=== PATIENT | female | born 1985 | race Asian ===

== ENCOUNTER 2020-11-16 15:35 | Emergency (ER) | payer OTHER, SELFPAY ==
[2020-11-16] VITALS (19 sets, daily range): BP systolic 96–109; BP diastolic 65–78; PULSE 80–109; RESP 19–40; TEMP 38.2; O2SAT 89–96
--- NOTE | ~2020-11-16 | XR_ITS ---
EXAMINATION: XR chest 1V portable DATE: 11/16/2020 16:21 INDICATION: Cough and fever. TECHNIQUE: frontal view of the chest was obtained. COMPARISON: Chest radiograph dated 03/20/2016 FINDINGS: Subtle opacities in the bilateral mid and lower lung zones. No pleural effusion or pneumothorax. The cardiomediastinal silhouette is normal. Visualized bones and soft tissues are unremarkable. IMPRESSION: 1. Subtle opacities in the bilateral mid and lower lung zones which could be related to pneumonia, pu lmonary edema, atelectasis, superimposed glandular breast tissue or some combination thereof. Reviewed, dictated and finalized at location B. IMPRESSION: 1. Subtle opacities in the bilateral mid and lower lung zones which could be re lated to pneumonia, pulmonary edema, atelectasis, superimposed glandular breast tissue or some combination thereof.
--- NOTE | 2020-11-16 16:23 | ECG_ITS ---
Measurements Intervals [place] Rate: 102 P: 121 NH: 129 QRS: 102 QRSD: 77 T: 151 QT: 314 QTc: 410 Interpretive Statements SINUS TACHYCARDIA ARM LEADS REVERSED BASELINE ARTIFACT- I, III, AVR, AVL, AVF, V1-V3 BORDERLINE ECG Electronically Signed On 11-22-2020 20:12:53 CDT by Robby Ortega D.O.
--- NOTE | 2020-11-16 16:28 | ED.SOB ---
HPI - SOB/Dyspnea General Chief Complaint: Shortness of Breath/Dyspnea <Rona Tom PA-C - Last Filed: 11/16/20 19:26> Stated Complaint: Low O2 Sats <HARMAN Walsh Last Filed: 11/16/20 19:26> Time Seen by Provider: 11/16/20 15:56 <HARMAN Walsh Last Filed: 11/16/20 19:26> Source: patient <HARMAN Walsh Last Filed: 11/16/20 19:26> Mode of arrival: wheelchair <HARMAN Walsh Last Filed: 11/16/20 19:26> Limitations: no limitations <HARMAN Walsh Last Filed: 11/16/20 19:26> History of Present Illness HPI Narrative: This is a 34 year old , about 20 weeks , that presents to the ER for shortness of breath. Reports ongoing cold symptoms for the last 2 days. Reports fever, cough, congestion, shortness, and sore throat. Reports she was at an engagement [employer] a week ago with a coworker. Reports she was told later that this person had tested positive for coronavirus. She herself is not vaccinated. Denies chest pain. <HARMAN Walsh Last Filed: 11/16/20 19:26> Related Data Home Medications: Home Medications Medication Instructions Recorded Confirmed albuterol mcg INHALATION 11/16/20 [id number] tablet PO 11/16/20 [] <HARMAN Walsh Last Filed: 11/16/20 19:26> Allergies/Adverse Reactions: Allergies Allergy/AdvReac Type Severity Reaction Status Date / Time peanut Allergy Severe Anaphylaxis Verified 11/16/20 16:14 <HARMAN Walsh Last Filed: 11/16/20 19:26> Review of Systems Review of Systems: CONSTITUTIONAL: Reports fever, chills CARDIOVASCULAR: Denies chest pain or edema. RESPIRATORY: Reports cough and dyspnea. GASTROINTESTINAL: Denies abdominal pain, nausea, vomiting <HARMAN Walsh Last Filed: 11/16/20 19:26> All systems reviewed & are unremarkable except as noted in HPI and below <Rona Tom PA-C - Last Filed: 11/16/20 19:26> [facility] Past Medical History Medical History: Medical History (Updated 11/16/20 @ 19:26 by Rona Tom PA-C) History of asthma STD exposure <Rona Tom PA-C - Last Filed: 11/16/20 19:26> Family History Family History: Family History Other Family history of alcoholism <Rona Tom PA-C - Last Filed: 11/16/20 19:26> Social History Social History: Social History (Updated 11/16/20 @ 19:19 by Rona Tom PA-C) Smoking status: Never smoker Gender identity (if verbalized by the patient): Female <Rona Tom PA-C - Last Filed: 11/16/20 19:26> Exam Narrative: GENERAL: Well-appearing, well-nourished, and in no acute distress. HEAD: Normocephalic, atraumatic. EYES: EOMI. ENT: Nares clear, no rhinorrhea or epistaxis. Mucous membranes moist. Oropharynx without tonsillar hypertrophy exudate or other lesions. Bilateral TMs pearly arrieta non-bulging NECK: Supple. No adenopathy or masses. CHEST: Rales at the lung bases. No respiratory distress. No wheezes or rhonchi HEART: Regular rate and rhythm. No murmur heard. Normal peripheral pulses. ABDOMEN: Gravid, nontender, normal active bowel sounds. EXTREMITIES: Normal range of motion. No edema. SKIN: Warm, dry, no rash. NEURO: No focal deficits. Alert and oriented x3. PSYCH: Normal mood and affect <Rona Tom PA-C - Last Filed: 11/16/20 19:26> Course [employer] Physician Supervision Patient is 34-year-old female complaining of shortness of breath. Covid positive patient. Mild distress. Febrile. Tachycardic no murmurs gallops or rubs. Tachypneic, clear to auscultation bilaterally. Awake alert oriented x4. Agree with current plan and treatment- Dr Fuentes <Steven Fuentes MD - Last Filed: 11/16/20 19:18> Consultations Consultation #1: Spoke with hospitalist about patient and work-up who recommends transfer to tertiary care center. <Mario
[2020-11-16 16:39] LABS: Basophils Percent Auto 0.3 % (0.2-1.2); Eosinophils Percent Auto 0.2 % (0-4.4); Hematocrit 34.2 % (37.0-47.0); Hemoglobin 11.5 g/dL (12.0-15.0); Immature Granulocyte Absolute 0.16 K/mm3 (0.00-0.031); Immature Granulocyte Percent A 2.8 % (0-0.5); Lymphocytes Absolute Auto 0.85 K/mm3 (0.9-3.2); Lymphocytes Percent Auto 14.7 % (18.3-44.2); Mean Corpuscular HGB Conc 33.6 g/dl (32-36); Mean Corpuscular Hemoglobin 30.3 pg (26-34); Mean Platelet Volume 10.1 fl (7.4-10.4); Monocytes Absolute Auto 0.6 K/mm3 (0.1-0.6); Monocytes Percent Auto 10.4 % (2.6-8.5); Neutrophils Absolute Auto 4.1 K/mm3 (1.3-6.7); Neutrophils Percent Auto 71.6 % (45.5-73.1); Platelet Count Result 264 k/mm3 (150-375); Red Cell Distribution Width 13.1 % (11.5-14.5); White Blood Count 5.8 K/mm3 (4.5-10.0)
[2020-11-16] MEDS: SODIUM CHLORIDE 0.9% IV 1,000 ML 999 ML IV CONT (16:40)
[2020-11-16 16:50] LABS: Lactic Acid Reflex 1.3 mmol/L (0.7-2.1)
[2020-11-16 16:58] LABS: EDCOVIDSCREEN Positive (Negative)
[2020-11-16 17:06] LABS: Alanine Aminotransferase 37 U/L (4-35); Albumin Level 3.2 g/dL (3.5-5.1); Alkaline Phosphatase 283 U/L (38-126); Anion Gap 6 mmol/L (8-16); Aspartate Amino Transferase 87 U/L (14-36); Bilirubin,Total 0.6 mg/dL (0.2-1.3); Blood Urea Nitrogen 4 mg/dL (7-17); Calcium 8.5 mg/dL (8.4-10.2); Carbon Dioxide 22 mmol/L (22-30); Chloride 105 mmol/L (98-107); Estimated CRCL calculation 115 ml/min; Estimated Glomerular Filt Rate > 60; Glucose 98 mg/dL (65-110); Lactate Dehydrogenase 1432 U/L (313-618); Potassium 3.9 mmol/L (3.4-5.0); Sodium 133 mmol/L (137-145)
[2020-11-16 17:29] LABS: CRP 14.2 mg/dL (<1.0)
[2020-11-16 17:50] LABS: Procalcitonin 0.5 ng/mL
[2020-11-16] MEDS: DEXAMETHASONE SOD PHOS INJ 4 MG/ML VIAL 6 MG IV PUSH (19:10)
== END 2020-11-16 20:05 | disposition short-term general hospital (02) ==
PROVIDERS: Physician Assistant; Emergency Provider Emergency Medicine; PCP Family Medicine
DX: O98.512 Other viral diseases complicating pregnancy, second trimester (principal); U07.1 COVID-19; O99.512 Diseases of the respiratory system complicating pregnancy, second trimester; J12.82 Pneumonia due to coronavirus disease 2019; J96.00 Acute respiratory failure, unspecified whether with hypoxia or hypercapnia; J45.909 Unspecified asthma, uncomplicated; Z3A.20 20 weeks gestation of pregnancy
CPT/HCPCS: 36415; 71045; 80053; 82728; 83605; 83615; 84145; 85025; 86140; 87426; 93005; 96365; 96366; 96375; 99285; C9803; J0131; J1100; J7030

== ENCOUNTER 2021-03-20 08:41 | Observation (INO) | payer OTHER, SELFPAY ==
--- NOTE | 2021-03-20 12:53 | PM.OBTRLD ---
OB - Triage/Final Diagnosis Visit Information Date of evaluation: 03/20/21 Reason for evaluation: threatened labor Comments/Additional reasons for admission: I have assessed the risk for this patient, Anup Alfonso, and determined that she would benefit from observation care.
[2021-03-20] MEDS: LACTATED RINGERS 1,000 ML 999 ML IV CONT (14:11)
== END 2021-03-20 12:20 | disposition home or self-care (01) ==
PROVIDERS: Admitting Provider Student in an Organized Health Care Education/Training Program; PCP Family Medicine; Visit Provider Student in an Organized Health Care Education/Training Program
DX: O47.9 False labor, unspecified (principal); Z3A.00 Weeks of gestation of pregnancy not specified
CPT/HCPCS: G0378; G0379; J7120

== ENCOUNTER 2021-03-21 10:43 | Inpatient (IN) | payer OTHER, SELFPAY ==
--- NOTE | 2021-03-06 16:16 | PC.NURSE ---
VERIFIED WITH OR SCHEDULE AND PATIENT -C/S ON 04/03/21 AT 1200 PATIENT GIVEN REQUISITION FOR PRE-OP LABS DRAW ON 04/02/21
[2021-03-21] VITALS (54 sets, daily range): BP systolic 95–147; BP diastolic 51–94; PULSE 55–236; RESP 12–20; TEMP 36.2–36.8; O2SAT 96–100; BMI 27.5
--- NOTE | 2021-03-21 11:30 | LDADM ---
This patient, Anup Alfonso, was admitted to Labor/Delivery/Recovery 119 on 03/21/21 at 10:43. Plans for surgery/ and pain management were discussed with patient. Patient/family oriented to hospital policies and general routines including ID bracelet, bed and alarms, visiting hours, pain management, procedures, bathroom and other care routines, personal items, smoking policy, room service/diet and guest tray routines, infant security routines, and visiting hours. Patient/Family are encouraged to report perceived risks to care and to ask questions if they do not understand what they are told or what they should do.
[2021-03-21] MEDS: LACTATED RINGERS 1,000 ML 125 ML IV CONT ×2 (11:35→12:08)
[2021-03-21 11:43] LABS: Basophils Percent Auto 0.2 % (0.2-1.2); Eosinophils Percent Auto 0.3 % (0-4.4); Hematocrit 34.8 % (37.0-47.0); Hemoglobin 11.1 g/dL (12.0-15.0); Immature Granulocyte Absolute 0.09 K/mm3 (0.00-0.031); Immature Granulocyte Percent A 0.6 % (0-0.5); Lymphocytes Absolute Auto 1.76 K/mm3 (0.9-3.2); Lymphocytes Percent Auto 12.3 % (18.3-44.2); Mean Corpuscular HGB Conc 31.9 g/dl (32-36); Mean Corpuscular Hemoglobin 25.9 pg (26-34); Mean Corpuscular Volume 81.1 fl (80-100); Mean Platelet Volume 10.9 fl (7.4-10.4); Monocytes Absolute Auto 0.8 K/mm3 (0.1-0.6); Monocytes Percent Auto 5.5 % (2.6-8.5); Neutrophils Absolute Auto 11.6 K/mm3 (1.3-6.7); Neutrophils Percent Auto 81.1 % (45.5-73.1); Platelet Count Result 212 k/mm3 (150-375); Red Blood Count 4.29 M/mm3 (4.2-5.4); Red Cell Distribution Width 16.3 % (11.5-14.5); White Blood Count 14.3 K/mm3 (4.5-10.0)
--- NOTE | 2021-03-21 11:57 | PM.IMHP ---
H&P: HPI History of Present Illness Date/Time: 03/21/21 11:57 Chief Complaint: intrauterine at term prior x2 spontaneous labor Narrative: 35 yo at 37w6d who presents in labor. She reports regular contractions since yesterday. Her cervix has progressed from 1 to 3 cm. Her is complicated by prior x2. She denies any vaginal bleeding or leakage of fluid. Pt also had COVID pneumonia earlier in the that required ICU hospitalization for 6 days. Review of Systems Cardiovascular: Cardiovascular: Denies chest pain, Denies leg edema, Denies palpitations, Denies dyspnea and Denies dyspnea on exertion Respiratory: Respiratory: Denies cough, Denies dyspnea and Denies dyspnea on exertion Gastrointestinal: Gastrointestinal: Denies abdominal pain, Denies constipation, Denies diarrhea, Denies nausea and Denies vomiting Genitourinary: Genitourinary: Denies hematuria, Denies urinary frequency, Denies dysuria, Denies pelvic pain, Denies urinary incontinence and Denies vaginal discharge Neurologic: Reports system reviewed and no additional complaints, except as documented Psychiatric: Psychiatric: Reports no additional psychiatric complaints Endocrine: Endocrine: Denies palpitations [facility] Past Medical History Medical History (Updated 03/21/21 @ 11:59 by Tonny Choudhary MD) History of asthma STD exposure Family History Family History (Updated 03/06/21 @ 16:08 by Jesus Manuel Holland RN) Father Family history of alcoholism Social History Social History (Updated 11/16/20 @ 19:19 by Rona Tom PA-C) Smoking status: Never smoker Substance use: never Gender identity (if verbalized by the patient): Female Spiritual care concerns: No Meds Home Medications and Allergies Home Medications Medication Instructions Recorded Confirmed Type albuterol 90 mcg INHALATION Q4H PRN 11/16/20 03/21/21 History [id number] 1 tablet PO DAILY 11/16/20 03/21/21 History Allergies Allergy/AdvReac Type Severity Reaction Status Date / Time peanut Allergy Severe Anaphylaxis Verified 11/16/20 16:14 Exam Const: General: no acute distress Eyes: EOM: EOMs intact bilaterally Neck: Neck: supple Thyroid: thyroid normal Chest: Breast/axilla inspection: normal inspection of the breasts Breast/axilla palpation: normal palpation of the breasts, normal palpation of the axillae and no axillary lymphadenopathy Resp: Effort & Inspection: normal respiratory effort Auscultation: clear to auscultation bilaterally Cardio: Rate: regular rate Rhythm: regular rhythm GI: Inspection: non-distended and other (Gravid) GI Palp: Yes Soft to palpation, No Tenderness to palpation present (GI) and No Guarding due to palpation present (GI) Auscultation: normal bowel sounds : Speculum Exam - Vagina: No vaginal bleeding OB/external & speculum: external exam normal; No vaginal bleeding Skin: General skin exam: normal color and no rashes or lesions noted Neuro: Cognition (Neuro): normal cognition Speech: normal speech Extrem: General: normal to inspection Psych: Mental Status: mental status grossly normal Affect: normal affect H&P: Results Labs Labs: Short CBC 03/21/21 Range/Units 11:26 WBC 14.3 H (4.5-10.0) K/mm3 Hgb 11.1 L (12.0-15.0) g/dL Hct 34.8 L (37.0-47.0) % Plt Count 212 (150-375) k/mm3 Assessment and Plan Assessment and plan (1) Supervision of high risk , unspecified, third trimester: Code(s): O09.93 - Supervision of high risk , unspecified, third trimester Status: Acute Assessment and Plan: 35 yo at 37w6d who presents in labor late transfer of care NIPT low risk labs wnl pt presented in labor, plan for repeat (2) History of section complicating : Code(s): O34.219 - Maternal care for unspecified type scar from previous delivery
--- NOTE | 2021-03-21 12:02 | WPDANESEPPF ---
Anes - Initial Pre Proc Eval Procedure: Operation Date: 04/03/21 12:00 Proposed Procedures p Repeat Section - Hernan Alvarez MD Date/Time: 03/21/21 12:02 Surgeon: Hernan Alvarez MD Pre Op Diagnosis: LABOR Patient Data Age: 35 Gender: F Height: 1.52 m Weight: 64 kg Last Vital Signs Pulse 79 03/21/21 12:00 BP 129/82 03/21/21 12:00 Allergies Allergy/AdvReac Type Severity Reaction Status Date / Time peanut Allergy Severe Anaphylaxis Verified 11/16/20 16:14 Home Medications Medication Instructions Recorded Confirmed Type albuterol 90 mcg INHALATION Q4H PRN 11/16/20 03/21/21 History [id number] 1 tablet PO DAILY 11/16/20 03/21/21 History Laboratory Tests 03/21/21 03/21/21 03/21/21 11:26 11:26 11:26 WBC 14.3 K/mm3 H K/mm3 (4.5-10.0) RBC 4.29 M/mm3 M/mm3 (4.2-5.4) Hgb 11.1 g/dL L g/dL (12.0-15.0) Hct 34.8 % L % (37.0-47.0) MCV 81.1 fl fl (80-100) MCH 25.9 pg L pg (26-34) MCHC 31.9 g/dl L g/dl (32-36) RDW 16.3 % H % (11.5-14.5) Plt Count 212 k/mm3 k/mm3 (150-375) MPV 10.9 fl H fl (7.4-10.4) Immature Gran % (Auto) 0.6 % H % (0-0.5) Neut % (Auto) 81.1 % H % (45.5-73.1) Lymph % (Auto) 12.3 % L % (18.3-44.2) [place] % (Auto) 5.5 % % (2.6-8.5) Eos % (Auto) 0.3 % % (0-4.4) Baso % (Auto) 0.2 % % (0.2-1.2) Lymph # (Auto) 1.76 K/mm3 K/mm3 (0.9-3.2) [place] # (Auto) 0.8 K/mm3 H K/mm3 (0.1-0.6) Eos # (Auto) 0.0 K/mm3 K/mm3 (0-0.3) Baso # (Auto) 0.0 K/mm3 K/mm3 (0.0-0.1) Abs Immat Gran (auto) 0.09 K/mm3 H K/mm3 (0.00-0.031) Absolute Neuts (auto) 11.6 K/mm3 H K/mm3 (1.3-6.7) Absolute Nucleated RBC 0.0 K/mm3 K/mm3 (0.0-0.012) Nucleated RBC % 0.0 % % (0.0-0.2) RPR Pending Hep Bs Antigen Rubella IgG Antibody Pending 03/21/21 11:27 WBC RBC Hgb Hct MCV MCH MCHC RDW Plt Count MPV Immature Gran % (Auto) Neut % (Auto) Lymph % (Auto) [place] % (Auto) Eos % (Auto) Baso % (Auto) Lymph # (Auto) [place] # (Auto) Eos # (Auto) Baso # (Auto) Abs Immat Gran (auto) Absolute Neuts (auto) Absolute Nucleated RBC Nucleated RBC % RPR Hep Bs Antigen Pending Rubella IgG Antibody Patient hx anesthesia problems: none Family hx anesthesia problems: none Results Review: All pre-operative results and documents have been reviewed as part of the pre-operative evaluation. [facility] Past Medical History Medical History (Updated 03/21/21 @ 11:59 by Tonny Choudhary MD) History of asthma STD exposure Family History Family History Father Family history of alcoholism Social History Social History (Updated 11/16/20 @ 19:19 by Rona Tom PA-C) Smoking status: Never smoker Substance use: never Gender identity (if verbalized by the patient): Female Spiritual care concerns: No Anes - Eval Final PreProcedure Day of Procedure 03/21/21 12:02 Patient weight: overweight Heart: regular rate and rhythm Lungs: clear to auscultation and normal air movement Airway: Mallampati scale class II Neurological: alert and oriented Last oral intake: >/= 8 hours ASA classification: II Emergent: no Anesthetic plan: proceed Anesthesia type and monitoring: regional spinal and standard monitoring Results Review: All pre-operative results and documents have been reviewed as part of the pre-operative evaluation. Informed Consent: The patient's anesthetic plan and its attendant risks and benefits were discussed with the patient/family/POA. Questions were solicited
[2021-03-21] MEDS: ceFAZolin 2 GM/D5W 50 ML 2 GM/50 ML BAG IVPB (12:13)
[2021-03-21 12:42] LABS: Rubella IgG Antibody 67.5 IU/ML
[2021-03-21 12:45] LABS: Hepatitis B Surface Antigen Negative (Negative)
--- NOTE | 2021-03-21 13:06 | W.PM.PROC2 ---
Procedure Note - Detailed Date of Procedure 03/21/21 Pre-op Diagnosis intrauterine at term prior x2 LABOR Post-op Diagnosis same Procedure Performed repeat low transverse section Surgeon Tonny Choudhary MD Anesthesia spinal and epidural Indications prior x2 Description of Procedure The patient was taken to the operating room. A combined spinal epidural anesthesic was administered and found to be adequate at a t-10 level. The patient was placed in a supine position with a slight left lateral tilt. A holguin catheter was placed with return of clear urine. A Bovie grounding pad was placed. Surgical prep was performed and surgical drapes were placed. A surgical time out was performed. A Pfannenstiel skin incision was then made with the scalpel and carried through to the underlying layer of fascia. The fascia was then incised in the midline and the incision was extended laterally with the Lopez scissors. The superior aspect of the fascia was then grasped with the Willy clamps, elevated, and the underlying rectus muscles dissected off bluntly and sharply. Attention was then turned to the inferior aspect of this incision which, in a similar fashion, was grasped, tented up with the Willy clamps, and the rectus muscles dissected off both bluntly and sharply. The rectus muscles were then in the midline. The peritoneum was identified and entered bluntly. The peritoneal incision was then extended superiorly and inferiorly with good visualization of the bladder. The vesico-uterine serosa was identified and dissected to create a bladder flap. The bladder blade was reinserted. The uterus was inspected for rotation. A low-transverse uterine incision was made sharply with the scalpel and entry was made into the uterine cavity. An amniotomy was made and copious amounts of clear fluid were noted on return. The uterine incision was extended laterally bluntly. The bladder blade was removed and the fetus was delivered atraumatically. The nose and mouth were suctioned with a bulb syringe. The umbilical cord was clamped twice and cut. The was handed off to the waiting staff. At the time of the delivery, the had good color, tone and grimace. The cried with minimal stimulation. A second segment of umbilical cord was clamped and cut for cord blood gasses. Cord blood was collected for determination of the blood type and for direct [place]. The placenta was delivered spontaneously without difficulty. The placenta appeared grossly normal and complete. The uterus was exteriorized and cleared of all clots and debris. The uterine incision was repaired using 0-monocryl suture in a running fashion. A second layer of 0 Monocryl suture was used in an imbricating fashion to obtain excellent hemostasis and uterine strength. The uterine closure was inspected for hemostasis. The posterior aspect of the uterus and the broad ligaments were inspected and the posterior cul-de-sac cleared of fluid and blood clots. The uterine closure was again inspected and found to be hemostatic. The uterus was returned to the abdominal cavity. The pericolic gutters were inspected and were cleared of all blood clots and debris. The uterine closure was then re inspected to ensure hemostasis as were all subfascial tissues. The peritoneum was closed using 3-0 vicryl in a running fashion. The fascia was reapproximated with 0-vicryl in a running fashion. The subcutaneous tissue was irrigated and hemostasis achieved with electrocautery. It was reapproximated with 3-0 vicryl in a running fashion. The skin was closed with 4-0 vicryl in a subcuticular fashion. A sterile dressing was applied to the wound. The patient tolerated the procedure well. Sponge, lap and needle counts were correct times three. The patient was taken to recovery in stable condition and without anticipated complications. Estimated Blood Loss 445 Urine Output 300 Drains No Pack
[2021-03-21] MEDS: OXYTOCIN 30 UNITS/NS 500 ML 30 UNITS/500 ML BAG 125 UNITS IV CONT (13:22)
[2021-03-21] MEDS: KETOROLAC 30 MG/ML VIAL (*BKC) IV PUSH (16:23)
[2021-03-21] MEDS: DEXTROSE 5%/0.45% SOD CHL 1,000 ML 125 ML IV CONT (17:10)
[2021-03-21] MEDS: ONDANSETRON INJ 4 MG/2 ML VIAL IV PUSH (18:02)
[2021-03-22] MEDS: DEXTROSE 5%/0.45% SOD CHL 1,000 ML 125 ML IV CONT (01:23)
[2021-03-22] MEDS: HYDROcodone/acetaminophen (*CRX) 5-325 MG TABLET 1 TAB PO (04:46)
[2021-03-22] MEDS: KETOROLAC 30 MG/ML VIAL (*BKC) IV PUSH (04:46)
[2021-03-22 04:50] VITALS: BP 114/70; PULSE 62; RESP 18; TEMP 36.9
[2021-03-22 05:27] LABS: Basophils Percent Auto 0.3 % (0.2-1.2); Eosinophils Percent Auto 0.3 % (0-4.4); Hematocrit 31.8 % (37.0-47.0); Immature Granulocyte Absolute 0.07 K/mm3 (0.00-0.031); Immature Granulocyte Percent A 0.6 % (0-0.5); Lymphocytes Absolute Auto 1.23 K/mm3 (0.9-3.2); Lymphocytes Percent Auto 9.7 % (18.3-44.2); Mean Corpuscular HGB Conc 31.4 g/dl (32-36); Mean Corpuscular Hemoglobin 25.5 pg (26-34); Mean Corpuscular Volume 81.1 fl (80-100); Monocytes Absolute Auto 0.6 K/mm3 (0.1-0.6); Monocytes Percent Auto 4.7 % (2.6-8.5); Neutrophils Absolute Auto 10.7 K/mm3 (1.3-6.7); Neutrophils Percent Auto 84.4 % (45.5-73.1); Platelet Count Result 221 k/mm3 (150-375); Red Blood Count 3.92 M/mm3 (4.2-5.4); White Blood Count 12.6 K/mm3 (4.5-10.0)
--- NOTE | 2021-03-22 06:53 | WPDANLDPN2 ---
Anes-Prog Note L&D Date/Time: 03/22/21 06:53 Comfortable throughout: section Neuraxial method: spinal Epidural/Spinal procedure site: clean & non-tender Neuro status: Neuro function grossly intact. Cardiovascular status: normal Respiratory status: normal Airway patency: baseline Mental status: baseline Post-Op hydration status: normal Vital Signs: Last Vital Signs Temp 36.9 C 03/22/21 04:50 Pulse 62 03/22/21 04:50 Resp 18 03/22/21 04:50 BP 114/70 03/22/21 04:50 Pulse Ox 100 03/21/21 16:00 Pain score (VAS): 2 I/O: Intake & Output 03/21/21 03/21/21 03/22/21 15:59 23:59 07:59 Intake Total 2000 450 1100 Output Total 1045 1000 Balance 955 450 100 Post-procedural complaints: none Patient feedback: Patient satisfied with anesthetic care.
--- NOTE | 2021-03-22 06:53 | WPDANLDNPN2 ---
Anes-Prog Note L&D-Neuraxial Date/Time: 03/22/21 06:53 Neuraxial medications: intrathecal PF morphine Opiod-related complaints: none Patient feedback: Patient satisfied with post-operative pain management.
--- NOTE | 2021-03-22 06:57 | PM.OBPNVD ---
OB - PN: Subj Subjective Date/time seen: 03/22/21 06:57 Interval history: Patient doing well this AM. she has note yet ambulated out of bed. She is tolerating PO. She reports adequate pain control. Her bleeding is normal and she reports normal lochia. She denies fever, chills, N/V. She has not yet passed flatus. Patient comments: no complaints and pain well controlled; no flatus present OB - PN: Obj Data Labs CBC & Chem 7: 03/22/21 04:54 Labs: Laboratory Results - last 24 hr 03/21/21 03/21/21 03/21/21 11:26 11:26 11:27 WBC 14.3 H RBC 4.29 Hgb 11.1 L Hct 34.8 L MCV 81.1 MCH 25.9 L MCHC 31.9 L RDW 16.3 H Plt Count 212 MPV 10.9 H Immature Gran % (Auto) 0.6 H Neut % (Auto) 81.1 H Lymph % (Auto) 12.3 L Saline % (Auto) 5.5 Eos % (Auto) 0.3 Baso % (Auto) 0.2 Lymph # (Auto) 1.76 Saline # (Auto) 0.8 H Eos # (Auto) 0.0 Baso # (Auto) 0.0 Abs Immat Gran (auto) 0.09 H Absolute Neuts (auto) 11.6 H Absolute Nucleated RBC 0.0 Nucleated RBC % 0.0 Hep Bs Antigen Rubella IgG Antibody 67.5 Blood Type O Positive Antibody Screen Negative 03/21/21 03/22/21 11:27 04:54 WBC 12.6 H RBC 3.92 L Hgb 10.0 L Hct 31.8 L MCV 81.1 MCH 25.5 L MCHC 31.4 L RDW 16.0 H Plt Count 221 MPV 11.0 H Immature Gran % (Auto) 0.6 H Neut % (Auto) 84.4 H Lymph % (Auto) 9.7 L Saline % (Auto) 4.7 Eos % (Auto) 0.3 Baso % (Auto) 0.3 Lymph # (Auto) 1.23 Saline # (Auto) 0.6 Eos # (Auto) 0.0 Baso # (Auto) 0.0 Abs Immat Gran (auto) 0.07 H Absolute Neuts (auto) 10.7 H Absolute Nucleated RBC 0.0 Nucleated RBC % 0.0 Hep Bs Antigen Negative Rubella IgG Antibody Blood Type Antibody Screen OB - PN A/P Plan day: 1 Plan: routine care Comments: patient doing well this AM s/p holguin catheter tolerating regular diet H/H stable continue routine PP care pt desires circumcision by PCP Time Spent With Patient Time: Total time spent is greater than 50% in coordination of care (as documented) at patient's floor/unit and/or counseling patient: Time with patient: less than 15 minutes Review of Systems Constitutional: Constitutional: Reports no additional constitutional complaints Cardiovascular: Cardiovascular: Reports no additional cardiovascular complaints Respiratory: Respiratory: Reports no additional respiratory complaints Gastrointestinal: Gastrointestinal: Reports no additional gastrointestinal complaints Genitourinary: Genitourinary: Reports no additional female genitourinary complaints Exam Const: General: comfortable and no acute distress Resp: Effort & Inspection: normal respiratory effort Auscultation: clear to auscultation bilaterally Cardio: Rate: regular rate GI: GI Palp: Yes Soft to palpation and Yes Tenderness to palpation present (GI) (appropriately tender around incision ) Auscultation: normal bowel sounds Other: fundus firm and below umbilicus Incision C/D/I Urinary Catheter: Urinary Catheter: urine clear Psych: Appearance: grossly normal Mental Status: mental status grossly normal Affect: normal affect
[2021-03-22 07:45] VITALS: BP 117/70; PULSE 70; RESP 18; TEMP 36.8; O2SAT 94
[2021-03-22] MEDS: DOCUSATE SODIUM 100 MG CAPSULE PO ×2 (10:33→17:23)
[2021-03-22] MEDS: MULTIVIT/MIN/PREN/FOL AC/IRON TABLET 1 TAB PO (10:33)
[2021-03-22] MEDS: IBUPROFEN 600 MG TABLET PO ×2 (10:34→17:23)
[2021-03-22] MEDS: HYDROcodone/acetaminophen (*CRX) 10-325 MG TABLET 1 TAB PO ×2 (10:39→17:23)
--- NOTE | 2021-03-22 10:40 | PC.NURSE ---
Mother called out for assist with feeding, mother reports she breastfed after delivery and this is now the first time since. Mother had bottle fed for other feedings. Mother plans to breast and bottle feed. Infant is able to freely thrust tongue past gum ridge and flange both lips. Skin is intact on both nipples, no redness and bruising noted. Reviewed feeding cues, frequencies, duration of feedings, feeding elimination flow sheet, and signs of adequate intake. Demonstrated stimulation techniques to wake for feeding. Assisted with to breast. Reviewed positioning/alignment in cross cradle, holding breast in ?U? hold and guided asymmetrical latch on. Reviewed rational for each. Infant able to latch correctly within a few attempts. Infant nursed eagerly with steady draws and occasional swallowing noted, some pausing noted. Reviewed signs of a correct latch, effective nursing and suck swallow ratio. Suggested mother stimulate while feeding to increase stimulation for milk supply, for increased intake and to assist with maintaining deep latch. Infant would slip to shallow latch causing tenderness. Demonstrated how to adjust latch more deeply while feeding as needed. Mother reports she can feel the difference in latch with no tenderness. Nipple care reviewed of lanolin after feedings, warm compresses as needed. Instructed mother to call out for RN assistance if she is unable to latch infant for feeding or she has discomfort with nursing. Instructed feeding should be initiated three hours from start of last feeding or if feeding cues are noted before. Mother voiced understanding of information shared.
[2021-03-22 12:03] VITALS: BP 119/75; PULSE 66; RESP 16; TEMP 36.9; O2SAT 98
--- NOTE | 2021-03-22 13:30 | PC.NURSE ---
Consult with pt., mother wishes to pump and bottle feed at times. Mother states she breastfed and bottle fed formula/EBM to other three children Breast pump provided due to mother's wishes. Instructions given on breast pump care and usage, pumping schedule, nipple care, and collection and storage of breast milk. Encouraged [id number], breast massage and manual expression to stimulate supply. Assessed patient for correct flange size, placement and draw. Patient verbalizes and demonstrates understanding of instructions. Discussed colostrum vs milk supply and mother may not see more than a few drops the first few days, milk should transition in by day 3 and she may see more volume pumped per session.
[2021-03-22 20:00] VITALS: BP 115/70; PULSE 65; RESP 16; TEMP 37.1
[2021-03-23] MEDS: HYDROcodone/acetaminophen (*CRX) 5-325 MG TABLET 1 TAB PO ×2 (00:17→21:53)
[2021-03-23] MEDS: IBUPROFEN 600 MG TABLET PO ×4 (00:18→21:51)
[2021-03-23] MEDS: HYDROcodone/acetaminophen (*CRX) 10-325 MG TABLET 1 TAB PO ×2 (07:19→15:53)
[2021-03-23 07:20] VITALS: BP 119/80; PULSE 69; RESP 18; TEMP 36.6
--- NOTE | 2021-03-23 08:11 | PM.OBPNVD ---
OB - PN: Subj Subjective Date/time seen: 03/23/21 08:11 Interval history: Patient doing well this AM. she is ambulating. She is tolerating PO. She reports adequate pain control. Her bleeding is normal and she reports normal lochia. She denies fever, chills, N/V. She has not yet had a BM. OB - PN: Obj Data Labs CBC & Chem 7: 03/22/21 04:54 OB - PN A/P Time Spent With Patient Time: Total time spent is greater than 50% in coordination of care (as documented) at patient's floor/unit and/or counseling patient:
--- NOTE | 2021-03-23 08:12 | PM.OBDSVD ---
DS: Admitting Diagnosis Discharge Date 03/24/20 Admitting Diagnosis intrauterine at term Prior x2 spontaneous labor OB - DS: Summary OB Procedures : None OB Procedures Intrapartum: OB Procedures: : None Peripartum Data Infant Delivery Method: Section Procedures: Procedures Operation Date: 03/21/21 12:00 Actual Procedure Side Surgeon p Section Not Applicable Hernan Alvarez MD complications: none Status at Discharge Functional status at discharge: independent ambulation Overall status at discharge: patient is progressing back to baseline Time Spent with Patient Time attestation: Total time spent providing and/or coordinating discharge services: Time spent: Less than 30 minutes Exam Const: General: comfortable and no acute distress Resp: Effort & Inspection: normal respiratory effort Auscultation: clear to auscultation bilaterally Cardio: Rate: regular rate GI: Inspection: non-distended GI Palp: Yes Soft to palpation, No Firmness to palpation present (GI), Yes Tenderness to palpation present (GI) (mild tenderness over incision ) and No Guarding due to palpation present (GI) Auscultation: normal bowel sounds Psych: Appearance: grossly normal Mental Status: mental status grossly normal Discharge Plan Discharge Discharging Clinician: Tonny Choudhary Patient Disposition: Home, Self-Care Activity: as tolerated and pelvic rest Diet: regular Discharge Instructions: Education: Mom and Baby Guide Given to: Mother Follow-Up: Call your delivering provider's office for an appointment to be seen in: Call for appointment Mom and baby [facility] for the follow-up appointment. Appointment Date/Time: March 26, 2021 at 10:00 am What to expect at your follow-up visit: Physical Assessment Call [phone] if you are unable to keep your appointment time. BREAST CARE: * Wear a snug supportive bra. * For engorgement discomfort: Breast Feeding: * Apply warm moist washcloths * Express milk as needed to relieve engorgement * Wear loose clothing * For sore nipples: * Identify correct latch-on * Apply warm moist washcloths before and after nursing * Air dry nipples after nursing * May apply Lansinoh cream to nipples ABDOMINAL INCISION: * Allow incision to air dry * Do NOT use lotions for powders on your incision * When showering, allow soap and water to run over the incision, but do not wash incisio PERINEAL CARE: * Until bleeding stops, use your neema bottle after urinating * Change your pad frequently throughout the day * No tub baths until seen by your physician - You may shower ACTIVITY: * Rest as much as possible. * Do not exercise or lift anything heavier than your baby (such as laundry or other children.) * Avoid stairs or driving as much as possible. * Do not put anything into the vagina. No douching, tampons, or sexual activity until seen by physician. NOTIFY PHYSICIAN IF YOU HAVE ANY QUESTIONS OR IF ANY OF THE FOLLOWING SYMPTOMS OCCUR: * If your incision becomes red, swollen, or more painful than what you have experienced in the hospital. * If your vaginal bleeding becomes foul smelling. * If your vaginal bleeding becomes more heavy than a period or if your bleeding changes from pink to bright red. However, you may pass an occasional walnut-sized clot once or twice for the first week . * If you experience a sharp, shooting pain in you calves. * If you discover a hard, reddened area on your breast or if you experience flu-like symptoms. DIET: * Eat regular, well-balanced meals. * Drink plenty of fluids daily. If , drink to thirst. Patient Instructions: Antibiotic Form, (DC) Stand Alone Forms: General Discharge Information Follow-up/Referrals: Hernan Alvarez MD [Physician] - Call
[2021-03-23] MEDS: DOCUSATE SODIUM 100 MG CAPSULE PO ×2 (10:22→17:01)
[2021-03-23] MEDS: MULTIVIT/MIN/PREN/FOL AC/IRON TABLET 1 TAB PO (10:22)
[2021-03-23 19:45] VITALS: BP 120/72; PULSE 72; RESP 16; TEMP 37.2; O2SAT 95
--- NOTE | 2021-03-23 22:43 | PC.NURSE ---
Checked on patient's status, patient sitting up in bed pumping with baby swaddled in crib at bedside. Asked patient at this time if she would like to send baby to the nursery. Patient refused. Patient had stated earlier in the evening that she couldn't change baby's diaper because she could not get out of bed to do so. When I asked her at that time if she was uncomfortable changing a diaper patient stated if you want me to drop him . At this time I mentioned the earlier conversation with the patient, patient now states that she is only unsteady on her feet when she is in pain and at this time she is okay to care for baby. Advised patient to call out when she needs help with baby, patient verbalizes understanding. No further needs at this time.
[2021-03-24] MEDS: IBUPROFEN 600 MG TABLET PO (07:47)
[2021-03-24] MEDS: HYDROcodone/acetaminophen (*CRX) 5-325 MG TABLET 1 TAB PO (07:48)
[2021-03-24] MEDS: DOCUSATE SODIUM 100 MG CAPSULE PO (07:49)
[2021-03-24] MEDS: MULTIVIT/MIN/PREN/FOL AC/IRON TABLET 1 TAB PO (07:49)
[2021-03-24 10:00] VITALS: BP 146/78; PULSE 71; RESP 18; TEMP 37.1
[2021-03-25 09:28] LABS: Rapid Plasma Reagin Non-Reactive (NonReactive)
== END 2021-03-24 11:36 | disposition home or self-care (01) | DRG 788 ==
LOC: ANHOB2 03-24 10:44 → ANHLDR 03-27 09:37 → ANHOB2 03-27 09:37
PROVIDERS: Admitting Provider Student in an Organized Health Care Education/Training Program; PCP Family Medicine; Visit Provider Student in an Organized Health Care Education/Training Program
DX: O34.219 Maternal care for unspecified type scar from previous cesarean delivery (principal); Z3A.37 37 weeks gestation of pregnancy; Z37.0 Single live birth; Z86.16 Personal history of COVID-19
CPT/HCPCS: 36415; 85025; 86592; 86762; 86850; 86900; 86901; 87340; A9270; J0131; J0690; J1885; J2274; J2405; J2590; J7120

== ENCOUNTER 2023-04-09 10:48 | Outpatient (CLI) | payer OTHER, SELFPAY ==
[2023-04-09 12:47] LABS: Basophils Percent Auto 0.6 % (0.2-1.2); Eosinophils Absolute Auto 0.1 K/mm3 (0-0.3); Eosinophils Percent Auto 1.1 % (0-4.4); Hematocrit 40.9 % (37.0-47.0); Hemoglobin 13.2 g/dL (12.0-15.0); Immature Granulocyte Absolute 0.01 K/mm3 (0.00-0.031); Immature Granulocyte Percent A 0.1 % (0-0.5); Lymphocytes Percent Auto 31.4 % (18.3-44.2); Mean Corpuscular HGB Conc 32.3 g/dl (32-36); Mean Corpuscular Hemoglobin 29.5 pg (26-34); Mean Corpuscular Volume 91.3 fl (80-100); Mean Platelet Volume 10.6 fl (7.4-10.4); Monocytes Absolute Auto 0.7 K/mm3 (0.1-0.6); Monocytes Percent Auto 9.3 % (2.6-8.5); Neutrophils Percent Auto 57.5 % (45.5-73.1); Platelet Count Result 289 k/mm3 (150-375); Red Blood Count 4.48 M/mm3 (4.2-5.4); Red Cell Distribution Width 13.4 % (11.5-14.5)
[2023-04-09 13:09] LABS: Hemoglobin A1C 5.5 % (<5.7)
[2023-04-09 13:34] LABS: Alanine Aminotransferase 19 U/L (6-35); Albumin Level 4.2 g/dL (3.5-5.1); Alkaline Phosphatase 69 U/L (38-126); Anion Gap 9 mmol/L (8-16); Aspartate Amino Transferase 36 U/L (14-36); Bilirubin,Total 0.7 mg/dL (0.2-1.3); Blood Urea Nitrogen 15 mg/dL (7-17); Calcium 8.9 mg/dL (8.4-10.2); Carbon Dioxide 21 mmol/L (22-30); Chloride 109 mmol/L (98-107); Cholesterol 170 mg/dL (0-200); Estimated Glomerular Filt Rate > 60; Glucose 94 mg/dL (65-110); HDL Direct 53 mg/dL; Potassium 3.9 mmol/L (3.4-5.0); Sodium 139 mmol/L (137-145); Triglycerides 74 mg/dL (<150)
[2023-04-09 13:44] LABS: LDL Cholesterol Direct 93 mg/dL
[2023-04-09 14:03] LABS: Thyroid Stimulating Hormone 0.896 uIU/mL (0.465-4.680)
[2023-04-09 17:05] LABS: Vitamin D 25 Hydroxy 22.8 ng/mL
== END 2023-04-09 10:49 | disposition home or self-care (01) ==
LOC: ANHGOSHLAB 10:49
PROVIDERS: PCP Family Medicine; Visit Provider Family Medicine
DX: R53.83 Other fatigue (principal)
CPT/HCPCS: 36415; 80053; 80061; 82306; 83036; 84443; 85025

== ENCOUNTER 2025-01-11 09:55 | Outpatient (CLI) | payer OTHER, SELFPAY ==
--- OUTSIDE RECORDS SUMMARY | 2025-01-11 11:39 | XMS_ITS | Clinical Summary ---
Author Organization [facility] [employer] Address [address] [place] [address] Care Team Providers Care Box Brander Name Role Phone Girish Rubio MD Primary Care Provider [phone]- [phone] Source Comments [facility] [employer],non-owned Affiliates and Associated Physician Practices is amultiple site organization consisting of ambulatory clinics and hospital sitesin [place], [place], [place] and [place]. This disclosure is being madepursuant to the Care Everywhere program and may not contain all information available regarding this patient. Last updated 17.[facility] [employer] Allergies Active Allergy Reactions Criticality Noted Date Comments Benzalkonium Chloride Other Low 09/15/2012 Red irritated eyes in the morning when uses eye drops with this at night Peanut-Derived Anaphylaxis High 05/03/2014 Medications * Be aware that medications may not be up to date on this document. Alwaysverify current medications with the patient. norethindrone-e thinyl estradiol (LOESTRIN /20) 1-20 MG-MCG tablet 08/10/2018 Active PROAIR HFA 108 (90 Base) MCG/ACT inhaler INHALE 2 PUFFS BY MOUTH PRIOR TO EXERCISE 2 10/08/2018 Active metroNIDAZOLE (FLAGYL) 500 MG tablet Take 1 tablet by mouth 2 times daily 14 tablet 10/28/2018 Active norgestimate-et hinyl estradiol (ORTHO-CYCLEN, 28,) 0.25-35 MG-MCG tablet Take 1 tablet by mouth once daily 3 packet 4 10/28/2018 Active Active Problems Problem Noted Date Diagnosed Date Asthma, mild intermittent 11/06/2010 History of urinary tract infection 11/06/2010 Resolved Problems Problem Noted Date Diagnosed Date Resolved Date Poor weight gain of 11/06/2010 04/06/2011 Maternal asthma complicating 11/06/2010 04/06/2011 Low-lying placenta 11/06/2010 2 , twins, antepartum 08/28/2010 04/06/2011 Immunizations Immunization Administration Dates Next Due FLU VACCINE TRI IIV3 SPLIT PF IM (FLUVIRIN) 12/22 TDAP (7yrs+) 04/09/2011 Family History Medical History Relation Name Comments CAD (Coronary Artery Disease) Other 1 aunt Diabetes Other 2 aunt Hypertension Other 3 aunt Stroke Other 4 aunt Relation Name Status Comments Father Alive Maternal Grandfather Maternal Grandmother Mother Alive Other 1 Other 2 Other 3 Other 4 Paternal Grandfather Paternal Grandmother Social History Tobacco Use Types Packs/Day Years Used Date Smoking Tobacco: Never Smokeless Tobacco: Never Alcohol Use Standard Drinks/Week Comments No 0 (1 standard drink = 0.6 oz pur e alcohol) Comments No Sex and Gender Information Value Date Recorded Sex Assigned at Not on file Legal Sex Female 8:36 AM TRIMMING CASER Gender Identity Not on file Sexual Orientation Not on file Last Filed Vital Signs Vital Sign Reading Time Taken Comments Blood Pressure 122/82 10/28/2018 1:02 PM CDT Pulse 72 09/29/2013 10:46 AM CDT Temperature 35.3 C (95.5 F) 09/29/2013 10:46 AM CDT Respiratory Rate 16 04/09/2011 4:40 PM TRIMMING CASER Oxygen Saturation 100% 04/06/2011 9:16 AM TRIMMING CASER Inhaled Oxygen Concentration - - Weight 52.6 kg (116 lb) 10/28/2018 1:02 PM CDT Height 152.4 cm (5') 10/28/2018 1:02 PM CDT Body Mass Index 22.65 10/28/2018 1:02 PM CDT Plan of Treatment Health Maintenance Due Date Last Done Comments HEPATITIS C SCREENING 12/21/2003 HEPATITIS B VACCINE (1 of 3 - 19+ 3-dose series) 2004 HPV VACCINE (1 - 3-dose SCDM series) 2012 DTAP/TDAP/TD VACCINES (2 - T d or Tdap) 04/09/2021 04/09/2011 PAP with HPV 10/29/2023 10/28/2018 DEPRESSION SCREENING 03/23/2024 COVID-19 VACCINE (1 - 2023-2 5 season) 2024 INFLUENZA VACCINE (#1) 2024 01/17/2011 ZOSTER VACCINE (1 of 2) 12/26/2035 HIV SCREENING Completed 09/18/2010 HIB VACCINE Aged Out No longer eligi ble based on patient's age to complete this topic MENINGOCOCCAL (Group B) VACC INE SHARED DECISION-MAKING Aged Out No longer eligibl e based on patient's age to complete this topic MENINGOCOCCAL GROUPS A/C/Y/W VACCINE Aged Out No longer eligible b ased on patient's age to complete this topic PNEUMOCOCCAL VACCINE Aged Out No long er eligible based on patient's age to complete this topic Procedures Procedure Name Priority Date/Time Associated Diagnosis Comments PAP IG LB +HPV APTIMA REFLEX 16,18/45 Routine 10/28/2018 1:40 PM CDT Well woman exam Screening for HPV (human papillomavirus) HIV-1 HIV-2 ANTIBODY Routine 09/18/2010 3:28 PM CDT Absence of menstruation confirmed from Last 3 Months or Most Recently Relevant to Health Maintenance Results * PAP IG LB +HPV APTIMA REFLEX 16,18/45 (10/28/2018 1:40 PM CDT) Diagnosis [facility] ACCOUNT BILL Comment:NEGATIVE FOR INTRAEP ITHELIAL LESION OR MALIGNANCY. Specimen Adequacy [facility] ACCOUNT BILL Comment: Satisfactory for evaluation. Endocervical and/or squamous metaplastic cells (endocervical component) are present. Clinician Provided ICD10 [facility] ACCOUNT BILL Comment: Z01.419 Z11.51 Performed by [facility] ACCOUNT BILL Comment:Simon Gunn, Cyto technologist (ASCP) Comment . [facility] ACCOUNT BILL Note [facility] ACCOUNT BILL Comment: The Pap smear is a screening test designed to aid in the detection of premalignant and malignant conditions of the uterine cervix. It is not a diagnostic procedure and should not be used as the sole means of detecting cervical cancer. Both false-positive and false-negative reports do occur. . IGLBP CPT Code Automation [facility] ACCOUNT BILL Comment: This liquid based ThinPrep(R) pap test was screened with the use of an image guided system. Human papillomavirus Aptima Negative Negative [facility] ACCOUNT BILL Comment: This test detects fourteen high-risk HPV types (16/18/31/33/35/39/45/ 51/52/56/58/59/66/68) without differentiation. PART OF UTERINE CERVIX / Unknown 10/28/2018 1:40 PM CDT 10/28/2018 Narrative [facility] ACCOUNT BILL - 11/01/2018 11:06 PM CDT Source.............Cervix LMP / Prev Treat...[id number] Other..............Oral Contraceptives No. of containers..01 ThinPrep Vial Resulting Agency Comment Lab Testing performed at: [address] [phone] [place] Sergio Lloyd MD LAB - PATHOLOGY/CYTOLOGY OR DERABLES Final Result Performing Organization Address [facility] de Phone Number [facility] ACCOUNT BILL [address] [place] [address] * HIV-1 HIV-2 ANTIBODY (09/18/2010 3:28 PM CDT) HIV-1 Antibody O.D. Ratio <1.00 <1.00- [facility] ACCOUNT BILL Comment:Index Value: Specime n reactivity relative to the negative cutoff. HIV-1/HIV-2 Non Reactive Non Reactive- [facility] ACCOUNT BILL BLOOD SPECIMEN / Unknown 09/18/2010 3:28 PM CDT 09/18/2010 5:23 PM CDT Narrative Resulting Agency Comment [facility] [address] [place] [address] us Sergio Lloyd MD LAB - CHEMISTRY ORDERABLES Final Result Performing Organization Address [facility] de Phone Number [facility] ACCOUNT BILL [address] [place] [address] from Last 3 Months or Most Recently Relevant to Health Maintenance Insurance [employer] Advance Directives * FULL RESUSCITATION (Latest Code Status on File) Date Activated Date Inactivated Comments 04/06/2011 4:53 AM 04/11/2011 12:21 AM * FULL RESUSCITATION Date Activated Date Inactivated Comments 03/24/2011 10:14 PM 03/25/2011 4:20 PM * FULL RESUSCITATION Date Activated Date Inactivated Comments 03/06/2011 11:51 AM 03/07/2011 1:11 AM Care Teams Box Brander Relationship Specialty Start Date End Date Girish Rubio MD PCP - General Internal Medicine 01/16/10
--- OUTSIDE RECORDS SUMMARY | 2025-01-11 11:40 | XMS_ITS | Clinical Summary ---
Author Organization [facility] Address [address] [place] [address] Care Team Providers Care Executive Chairman Name Role Phone Unavailable Primary Care Provider Unavailabl e Allergies Active Allergy Reactions Criticality Noted Date Comments Peanut Unknown 12/05/2019 Medications vit-iron fumarate-fa (ECTOR ) 28 mg iron- 800 mcg Tablet Take 1 Tablet by mouth daily. Active ibuprofen (MOTRIN) 600 mg tablet Take 1 Tablet (600 mg) by mouth every 6 hours. 40 Tablet 1 12/08/2019 2:28 PM CDT 12/07/2019 Active oxyCODONE (ROXICODONE) 5 mg tabletIndication s:Born by section Take 1 Tablet (5 mg) by mouth every 4 hours as needed for Pain, Break-Throu gh. Max Daily Amount: 30 mg 25 Tablet 12/08/2019 2:28 PM CDT 12/07/2019 Active Active Problems Problem Noted Date Diagnosed Date ERRONEOUS ENCOUNTER--DISREGARD 04/14/2019 Immunizations Immunization Administration Dates Next Due (ADACEL/BOOSTRIX)(10 YR UP) TDAP VACCINE, 0.5ML, IM 04/09/2011 Influenza Seasonal Unspecifi ed Formulation IM 01/15/2021,01/10/2020,01/03/2020,2018 Influenza Vaccine Tri Split 4+ Pf Im 01/17/2011 Social History Tobacco Use Types Packs/Day Years Used Date Smoking Tobacco: Never Assessed Comments No Sex and Gender Information Value Date Recorded Sex Assigned at Not on file Legal Sex Female 1:49 PM CDT Gender Identity Not on file Sexual Orientation Not on file Last Filed Vital Signs Vital Sign Reading Time Taken Comments Blood Pressure 126/89 12/08/2019 7:00 AM CDT Pulse 77 12/08/2019 7:00 AM CDT Temperature 36.9 C (98.5 F) 12/08/2019 7:00 AM CDT Respiratory Rate 18 12/08/2019 7:00 AM CDT Oxygen Saturation 100% 12/05/2019 1:32 PM CDT Inhaled Oxygen Concentration - - Weight 63.7 kg (140 lb 8 oz) 12/05/2019 9:16 AM CDT Height 152.4 cm (5') 12/05/2019 9:16 AM CDT Body Mass Index 27.44 12/05/2019 9:16 AM CDT Plan of Treatment Health Maintenance Due Date Last Done Comments HEPATITIS B VACCINES (1 of 3 - 19+ 3-dose series) 2004 HPV VACCINES (1 - 3-dose SCD M series) 2012 DTAP/TDAP/TD VACCINES (2 - T d or Tdap) 04/09/2021 04/09/2011 PAP SMEAR 01/17/2023 01/18/2020, 10/28/2018 INFLUENZA VACCINE (#1) 2024 1, 01/10/2020, 01/03/2020, Additional history exists CERVICAL CANCER SCREENING 01/17/2025 HPV/Cotest (21-29) 01/17/2025 01/18/2020 HPV/Cotest (30-65) 01/17/2025 01/18/2020 Procedures Procedure Name Priority Date/Time Associated Diagnosis Comments CERV/VAG CYTO AGE BASED SCREEN PAP Routine 01/18/2020 11:00 AM CDT Smear, vaginal, as part of routine gynecological examination from Last 3 Months or Most Recently Relevant to Health Maintenance Results * CERV/VAG CYTO AGE BASED SCREEN PAP (01/18/2020 11:00 AM CDT) COMMENT (PAP): SEE COMMENT 0 11:20 AM BUSINESS MAIL ENTRY CLERK [facility] Comment: This order for age-based cervical cancer and STI screening follows ACOG guidelines(PB 168, 140, WDR316). See individual assays for performing site location. CLINICAL INFORMATION Information not provided 01/24/2020 11:20 AM BUSINESS MAIL ENTRY CLERK [facility] LAST MENSTRUAL PERIOD [id number] 01/24/2020 11:20 AM BUSINESS MAIL ENTRY CLERK [facility] PREV PAP: INFORMATION NOT PROVIDED 01/24/2020 11:20 AM BUSINESS MAIL ENTRY CLERK [facility] PREV BX: INFORMATION NOT PROVIDED 01/24/2020 11:20 AM BUSINESS MAIL ENTRY CLERK [facility] SOURCE Endocervix 01/24/2020 11:20 AM BUSINESS MAIL ENTRY CLERK [facility] ADEQUACY: SEE COMMENT 01/24/2020 11:20 AM BUSINESS MAIL ENTRY CLERK [facility] Comment: Satisfactory for evaluation. Endocervical/transformation zone component present. PAP INTERP Negative for intraepithelial lesion or malignancy. 01/24/2020 11:20 AM BUSINESS MAIL ENTRY CLERK [facility] COMMENT This Pap test has been evaluated with computer assisted technology. 01/24/2020 11:20 AM [facility] OTTER TRAWLER BOATSWAIN: SEE COMMENT 2019 11:20 AM [facility] Comment: YANY, CT(ASCP) CT screening location: [place] [address] [place] [address] EXPLANATORY NOTE SEE COMMENT 020 11:20 AM BUSINESS MAIL ENTRY CLERK [facility] Comment: EXPLANATORY NOTE: The Pap is a screening test for cervical cancer. It is not a diagnostic test and is subject to false negative and false positive results. It is most reliable when a satisfactory sample, regularly obtained, is submitted with relevant clinical findings and history, and when the Pap result is evaluated along with historic and current clinical information. HPV E6/E7 Not Detected Not Detected 01/24/2020 11:20 AM [facility] Comment: This test was performed using the APTIMA HPV Assay ([employer] This assay detects E6/E7 viral messenger RNA (mRNA) from 14 high-risk HPV types (16,18,31,33,35,39,45,51,52,56,58,59,66,68). The analytical performance characteristics of this assay have been determined by [facility]. The modifications have not been cleared or approved by the FDA. This assay has been validated pursuant to the CLIA regulations and is used for clinical purposes. Genital SWAB OF ENDOCERVIX / Unknown Collection / Unknown 01/18/2020 11:00 AM CDT 01/18/2020 6:10 PM CDT Narrative [facility] - 01/24/2020 11:20 AM BUSINESS MAIL ENTRY CLERK Performing Organization Information: Site ID: [id number] Name: [facility] Address: [address] [address] Director: Skinny Garcia D.O., MPH Site ID: [place] Name: [facility] Address: [address] [address] Director: Niru Fay us Hernan Choudhary MD PATHOLOGY/CYTOLOGY ORDERABLES Final Result [facility] [phone] from Last 3 Months or Most Recently Relevant to Health Maintenance Insurance RX MEDIMPACT Member Subscriber Plan / Payer (Ef fective for All Dates) Name:Anup Alfonso Relation to Subscriber:Self Name:Anup Alfonso Payer ID:Not on file Group ID:[id number] Type:RX Commercial Address: [address] RX ESTRADA PLANS (INTERNAL) [facility] Internal Plans Advance Directives For more information, please contact: [phone] * Full Code (Latest Code Status on File) Date Activated Date Inactivated Comments 12/05/2019 1:17 PM 12/08/2019 6:00 PM * Full Code Date Activated Date Inactivated Comments 12/05/2019 9:01 AM 12/05/2019 1:17 PM
--- OUTSIDE RECORDS SUMMARY | 2025-01-11 11:40 | XMS_ITS | Clinical Summary ---
Author Organization [facility] Address [address] [place] [address] Care Team Providers Care Cattyman Name Role Phone Unavailable Primary Care Provider Unavailabl e Social History Tobacco Use Types Packs/Day Years Used Date Smoking Tobacco: Never Assessed Comments Unknown Sex and Gender Information Value Date Recorded Sex Assigned at Not on file Legal Sex Female 10:54 AM CDT Gender Identity Not on file Sexual Orientation Not on file Plan of Treatment Health Maintenance Due Date Last Done Comments Cervical Cancer Screening Pa p Smear (Age 30 to 64) Every 3 Years 1985 Annual Physical 1988 Hepatitis C 12/26/2003 DTaP, Tdap and Td Vaccines ( 1 - Tdap) 2004 Hepatitis B Vaccines (1 of 3 - 19+ 3-dose series) 2004 HPV Vaccines (1 - 3-dose SCD M series) 2012 Cervical Cancer Screening Pa p with HPV Testing (Age 30 to 64) Every 5 Years 12/26/2015 Cervical Cancer Screening with HPV 12/26/2015 COVID-19 Vaccine (2024-2 6 season) 2024 Influenza Adult (#1) 2024 Hepatitis A Vaccines Aged Out No long er eligible based on patient's age to complete this topic Meningococcal B Vaccine Aged Out No l onger eligible based on patient's age to complete this topic Meningococcal Vaccine Aged Out No denisha milo eligible based on patient's age to complete this topic Pneumococcal Vaccine: Pediat rics (0 to 5 Years) and At-Risk Patients (6 to 49 Years) Aged Out No longer eligible b ased on patient's age to complete this topic RSV Immunizations Under 20 Months Aged Out No longer eligible based on patient's age to complete this topic Insurance [employer]
--- OUTSIDE RECORDS SUMMARY | 2025-01-11 11:40 | XMS_ITS | Encounter Summary ---
Author Organization [facility] Health Address [address] [place] [address] Care Team Providers Care Pipe Jeeper Name Role Phone Girish Rubio MD Primary Care Provider +1- [phone] Encounter Details Date Type Department Care Team (Late st Contact Info) Description 09/19/2010 [facility] Outpatient Visit [facility] - X RAY DEVELOPER [id number] [place] [address] [place] [address] [place] [address] [facility] [address] [place] [address] [id number] Social History Tobacco Use Types Packs/Day Years Used Date Smoking Tobacco: Never Alcohol Use Standard Drinks/Week Comments No 0 (1 standard drink = 0.6 oz pur e alcohol) Comments Yes Sex and Gender Information Value Date Recorded Sex Assigned at Not on file Legal Sex Female 8:36 AM TOOLMAKER HELPER Gender Identity Not on file Sexual Orientation Not on file documented as of this encounter Plan of Treatment Not on file documented as of this encounter Visit Diagnoses Not on filedocumented in this encounter Care Teams Pipe Jeeper Relationship Specialty Start Date End Date Girish Rubio MD PCP - General Internal Medicine 01/16/10 documented as of this encounter
[2025-01-11 15:09] LABS: Hematocrit 43.6 % (37.0-47.0); Hemoglobin 13.8 g/dL (12.0-15.0); Immature Granulocyte Percent A 0.4 % (0-0.5); Lymphocytes Absolute Auto 1.38 K/mm3 (0.9-3.2); Mean Corpuscular HGB Conc 31.7 g/dl (32-36); Mean Corpuscular Hemoglobin 30.4 pg (26-34); Mean Corpuscular Volume 96.0 fl (80-100); Nucleated Red Blood Cells Absolute Auto 0.000 K/mm3 (0.0-0.012); Nucleated Red Blood Cells Perc 0.0 % (0.0-0.2); Platelet Count Result 296 k/mm3 (150-375); Red Blood Count 4.54 M/mm3 (4.2-5.4); White Blood Count 5.0 K/mm3 (4.5-10.0)
[2025-01-11 15:50] LABS: Alanine Aminotransferase 21 U/L (6-35); Albumin Level 4.3 g/dL (3.5-5.1); Alkaline Phosphatase 68 U/L (38-126); Anion Gap 8 mmol/L (4-12); Aspartate Amino Transferase 49 U/L (14-36); Bilirubin,Total 0.4 mg/dL (0.2-1.3); Blood Urea Nitrogen 15 mg/dL (7-17); Calcium 9.1 mg/dL (8.4-10.2); Carbon Dioxide 24 mmol/L (22-30); Chloride 108 mmol/L (98-107); Cholesterol 186 mg/dL (0-200); Estimated Glomerular Filt Rate > 60; Glucose 83 mg/dL (65-110); HDL Direct 59 mg/dL; Potassium 4.2 mmol/L (3.4-5.0); Sodium 140 mmol/L (137-145); Total Protein 7.8 g/dL (6.3-8.2); Triglycerides 67 mg/dL (<150)
[2025-01-11 17:46] LABS: Thyroid Stimulating Hormone Reflex 1.240 uIU/mL (0.465-4.68)
[2025-01-11 18:04] LABS: Ferritin 14.20 ng/mL (6.24-137)
== END 2025-01-11 09:56 | disposition home or self-care (01) ==
LOC: ANHGOSHLAB 09:57
PROVIDERS: PCP Family Medicine; Visit Provider Family Medicine
DX: Z00.00 Encounter for general adult medical examination without abnormal findings (principal)
CPT/HCPCS: 36415; 80053; 80061; 82728; 84443; 85025